=== PATIENT | female | born 1970 | race Caucasian/White ===

== ENCOUNTER 2018-07-26 13:49 | Emergency (ER) | payer MEDICAID, OTHER, SELFPAY ==
[~2018-07-26] VITALS: Ht 165.1 cm; Wt 55.1 kg
[2018-07-26 13:52] VITALS: BP 107/70
[2018-07-26] MEDS ORDERED: KETOROLAC 30 MG/1 ML ONE (14:48)
[2018-07-26] MEDS ORDERED: KETOROLAC 30 MG/1 ML IM ONE (15:00)
== END 2018-07-26 15:15 | disposition home or self-care (01) ==
LOC: ED 15:00
DX: S90.32XA Contusion of left foot, initial encounter (principal); X58.XXXA Exposure to other specified factors, initial encounter; Y93.89 Activity, other specified; Y92.009 Unspecified place in unspecified non-institutional (private) residence as the place of occurrence of the external cause; Y99.8 Other external cause status
CPT/HCPCS: 73630; 96372; 99283; J1885

== ENCOUNTER 2019-03-27 23:06 | Emergency (ER) | payer MEDICAID ==
[~2019-03-27] VITALS: Ht 165.1 cm; Wt 51.0 kg
[2019-03-27] MEDS ORDERED: UMEC1DIS PO (23:20)
[2019-03-27] MEDS ORDERED: TOPI25TA8 PO (23:20)
[2019-03-27] MEDS ORDERED: ALBU0.63 NEB (23:20)
[2019-03-27] MEDS ORDERED: GABA300C10 PO (23:20)
[2019-03-27] MEDS ORDERED: HYDR-3245 PO (23:20)
[2019-03-27] MEDS ORDERED: ONDA4TAB13 SL (23:20)
[2019-03-27] MEDS ORDERED: SUCR1TAB PO (23:20)
[2019-03-27] MEDS ORDERED: LORazepam 1MG TABLET ONE (23:30)
[2019-03-27] MEDS ORDERED: LORazepam 2 MG/ML, 1ML IVPush ONE (23:30)
[2019-03-27 23:38] LABS: BASOPHILS % (AUTO) 0 % (0-1); EOSINOPHILS # (AUTO) 0.09 x10^3/uL (0-0.4); EOSINOPHILS % (AUTO) 1 % (1-7); LYMPHOCYTES # (AUTO) 1.32 x10^3/uL (1-3.4); LYMPHOCYTES % (AUTO) 12 % (22-44); MD NO; MEAN CORPUSCULAR HEMOGLOBIN 33.8 pg (27.0-34.8); MEAN CORPUSCULAR HGB CONC 33.4 g/dL (32.4-35.8); MEAN CORPUSCULAR VOLUME 101.3 fL (80-100); MONOCYTES # (AUTO) 0.25 x10^3/uL (0.2-0.8); MONOCYTES % (AUTO) 2 % (2-9); NEUTROPHILS # (AUTO) 9.51 x10^3/uL (1.8-6.8); NEUTROPHILS % (AUTO) 85 % (42-75); PLATELET COUNT 253 x10^3/uL (130-400); RED BLOOD COUNT 4.16 x10^6/uL (3.82-5.3); RED CELL DISTRIBUTION WIDTH 12.6 % (9.6-15.2)
--- NOTE | 2019-03-27 23:40 | NUR ---
PT TO CT. VSS. AT BEDSIDE
[2019-03-27 23:48] LABS: ALANINE AMINOTRANSFERASE 22 U/L (12-78); ALBUMIN 3.7 g/dL (3.4-5.0); ANION GAP 11 mmol/L (5-15); CALCIUM 8.7 mg/dL (8.5-10.1); CHLORIDE 108 mmol/L (98-107); CREATININE 1.01 mg/dL (0.55-1.02); SALICYLATE LEVEL 5.4 mg/dL (2.8-20.0)
[2019-03-27 23:56] LABS: ALKALINE PHOSPHATASE 56 U/L (45-117); FREE T4 (FREE THYROXINE) 1.31 ng/dL (0.76-1.46); TOTAL PROTEIN 7.6 g/dL (6.4-8.2)
[2019-03-28] MEDS ORDERED: LORazepam 1MG TABLET PO ONE
--- NOTE | 2019-03-28 00:07 | NUR ---
PT RESTING IN BED WITH NO COMPLAINTS, AWARE OF NEED FOR URINE
--- NOTE | 2019-03-28 00:29 | NUR ---
PT TO BR AT THIS TIME FOR URINE
[2019-03-28 00:41] VITALS: BP 93/59
[2019-03-28 00:44] LABS: MICROSCOPIC NOT IND
[2019-03-28 00:47] LABS: CULTURE INDICATED? NO
[2019-03-28 00:55] LABS: AMPHETAMINE SCREEN, URINE Negative (Negative); BARBITURATE SCREEN, URINE Negative (Negative); BENZODIAZEPINE SCREEN, URINE Positive (Negative); CANNABINOID SCREEN, URINE Negative (Negative); COCAINE SCREEN, URINE Negative (Negative); METHADONE SCREEN, URINE Negative (Negative); OPIATE SCREEN, URINE Negative (Negative)
== END 2019-03-28 01:37 | disposition home or self-care (01) ==
LOC: ED 03-28 01:34 → MERGE 03-28 01:34 → ED 03-28 01:37
DX: G25.0 Essential tremor (principal); R91.8 Other nonspecific abnormal finding of lung field; R06.02 Shortness of breath; R11.10 Vomiting, unspecified; J44.9 Chronic obstructive pulmonary disease, unspecified; F17.200 Nicotine dependence, unspecified, uncomplicated
CPT/HCPCS: 36415; 70450; 71045; 80053; 80307; 81003; 84439; 84443; 85025; 93005; 99284

== ENCOUNTER 2020-04-25 09:31 | Emergency (ER) | payer MEDICAID ==
[~2020-04-25] VITALS: Ht 165.1 cm; Wt 55.7 kg
[~2020-04-25 09:31] MED LIST: ALBU0.63 NEB; GABA300C10 PO; HYDR-3245 PO; ONDA4TAB13 SL; SUCR1TAB PO; TOPI25TA8 PO; UMEC1DIS PO
[2020-04-25] MEDS ORDERED: MORPHINE SULFATE 4 MG/ML, 1ML ONE (10:53)
[2020-04-25] MEDS ORDERED: ONDANSETRON 2MG/ML, 2ML ONE (10:53)
[2020-04-25 11:00] VITALS: BP 105/55
[2020-04-25] MEDS ORDERED: MORPHINE SULFATE 4 MG/ML, 1ML IVPush PRN (11:00)
[2020-04-25] MEDS ORDERED: SODIUM CHLORIDE FLUSH 10ML SYR IVF ONE (11:00)
[2020-04-25] MEDS ORDERED: ONDANSETRON 2MG/ML, 2ML IVPush ONE (11:00)
[2020-04-25] MEDS ORDERED: PANTOPRAZOLE 40 MG IV IVPush ONE (11:00)
[2020-04-25 11:04] LABS: BASOPHILS # (AUTO) 0.03 x10^3/uL (0-0.1); BASOPHILS % (AUTO) 0 % (0-1); EOSINOPHILS % (AUTO) 6 % (1-7); LYMPHOCYTES # (AUTO) 2.67 x10^3/uL (1-3.4); LYMPHOCYTES % (AUTO) 39 % (22-44); MD NO; MEAN CORPUSCULAR HEMOGLOBIN 31.8 pg (27.0-34.8); MEAN CORPUSCULAR HGB CONC 33.4 g/dL (32.4-35.8); MEAN CORPUSCULAR VOLUME 95.1 fL (80-100); MEAN PLATELET VOLUME 7.6 fL (7.4-10.4); MONOCYTES # (AUTO) 0.52 x10^3/uL (0.2-0.8); MONOCYTES % (AUTO) 8 % (2-9); NEUTROPHILS # (AUTO) 3.21 x10^3/uL (1.8-6.8); NEUTROPHILS % (AUTO) 47 % (42-75); PLATELET COUNT 252 x10^3/uL (130-400); RED BLOOD COUNT 4.42 x10^6/uL (3.82-5.3); RED CELL DISTRIBUTION WIDTH 13.1 % (9.6-15.2)
[2020-04-25 11:09] LABS: MICROSCOPIC NOT IND
[2020-04-25] MEDS ORDERED: PANTOPRAZOLE 40 MG IV ONE (11:12)
[2020-04-25 11:13] LABS: ALANINE AMINOTRANSFERASE 22 U/L (12-78); ALBUMIN 3.7 g/dL (3.4-5.0); CALCIUM 9.1 mg/dL (8.5-10.1)
[2020-04-25 11:16] LABS: ALKALINE PHOSPHATASE 75 U/L (45-117); BILIRUBIN,TOTAL 0.8 mg/dL (0.2-1.0); CREATININE 0.77 mg/dL (0.55-1.02); TOTAL PROTEIN 7.2 g/dL (6.4-8.2)
[2020-04-25 11:20] LABS: ANION GAP 4 mmol/L (5-15); CHLORIDE 110 mmol/L (98-107)
--- NOTE | 2020-04-25 11:25 | NUR ---
ABDOMINAL PAIN IMPROVED SINCE MEDICATED
[2020-04-25] MEDS ORDERED: SODIUM CHLORIDE 0.9% 1,000ML IVBOLUS ONE (11:30)
--- NOTE | 2020-04-25 12:10 | NUR ---
AMBULATED TO BATHROOM STEADY GAIT
== END 2020-04-25 13:00 | disposition home or self-care (01) ==
LOC: ED 10:44
DX: R11.2 Nausea with vomiting, unspecified (principal); G89.29 Other chronic pain; R10.84 Generalized abdominal pain; R94.31 Abnormal electrocardiogram [ECG] [EKG]; I21.9 Acute myocardial infarction, unspecified; Z90.710 Acquired absence of both cervix and uterus; Z90.49 Acquired absence of other specified parts of digestive tract; Z88.1 Allergy status to other antibiotic agents
CPT/HCPCS: 36415; 71045; 80053; 81003; 83690; 85025; 93005; 96361; 96374; 96375; 99285; C9113; J2270; J2405; J7030

== ENCOUNTER → 2020-05-02 | Outpatient (CLI) | payer MEDICAID | END | disposition home or self-care (01) | LOC: STAR 09:26 | PROVIDERS: ATTEND Orthopaedic Surgery | DX: Z01.818 Encounter for other preprocedural examination (principal); R79.1 Abnormal coagulation profile | CPT/HCPCS: 93005 ==